=== PATIENT | male | born 1970 | race African-American/Black ===

== ENCOUNTER 2021-10-26 20:25 | Emergency (ER) | payer MEDICARE ==
[2021-10-26] MEDS ORDERED: Dexamethasone 10 MG/ML VIAL ONE (21:50)
[2021-10-26] MEDS ORDERED: Ketorolac Tromethamine 30 MG/ML VIAL ONE (21:51)
== END 2021-10-26 21:55 | disposition home or self-care (01) ==
LOC: CSHERS 20:25
DX: M70.22 Olecranon bursitis, left elbow (principal)
CPT/HCPCS: J1100; J1885

== ENCOUNTER 2021-11-29 18:18 | Emergency (ER) | payer MEDICARE, OTHER ==
[2021-11-29] MEDS ORDERED: Ketorolac Tromethamine 30 MG/ML VIAL ONE (18:58)
[2021-11-29] MEDS ORDERED: Dexamethasone 4 MG TAB ONE (18:58)
== END 2021-11-29 19:01 | disposition home or self-care (01) ==
LOC: CSHERS 18:18
DX: M70.22 Olecranon bursitis, left elbow (principal)
CPT/HCPCS: 96372; 99283; J1885; J8540